=== PATIENT | female | born 1945 | race Caucasian/White ===

== ENCOUNTER 2023-10-31 07:48 | Day surgery (SDC) | payer MEDICARE, MEDICAID ==
[~2023-10-31] VITALS: Ht 157.5 cm; Wt 61.4 kg
[2023-10-31] VITALS (22 sets, daily range): BP systolic 116–176; BP diastolic 53–90; PULSE 66–91; RESP 12–18; TEMP 97.1; O2SAT 92–100
[~2023-10-31 07:48] MED LIST: B12 VITAMIN; BECL7.3A INH; BIOTIN; EVOL140P3 SUBCUT; LIDOcaine 1% w/EPI 1:100,000 inj. MDV 50 ML VIAL ONE; MOME45CR3 TOP; PROBIOTIC; VITAMIN C; [UNRECOGNIZED DRUG - OTHER]; [UNRECOGNIZED DRUG - OTHER]; bacitracin 15gm ointment TP ONE; cocaine 4% topical solution 4ml bottle ONE; epiNEPHrine 1 mg/ml 30ml MDV ONE; mupirocin 2% ointment 22GM ONE; oxymetazoline 15 ML nasal spray NS ONE; tranexamic acid 100mg/ml inj. ONE
[2023-10-31] MEDS: ringers solution, lacted 1,000 ML IV SCH (08:28)
[2023-10-31] MEDS: famotidine 20mg tablet PO ONE (08:28)
[2023-10-31] MEDS: oxymetazoline 15 ML nasal spray NS ONE (09:15)
[2023-10-31] MEDS ORDERED: propofol inj 20 ML IV ONE (09:58)
[2023-10-31] MEDS ORDERED: LIDOcaine 1%/PF 5ML 10 MG/ML VIAL ONE (09:58)
[2023-10-31] MEDS ORDERED: ondansetron/PF 4mg/2ml inj ONE (09:59)
[2023-10-31] MEDS ORDERED: dexamethasone sod phosphate 4mg/ml inj. ONE (09:59)
[2023-10-31] MEDS: cocaine 4% topical solution 4ml bottle TP ONE (10:05)
[2023-10-31] MEDS ORDERED: ondansetron/PF 4mg/2ml inj IV PRN ×2 (10:55→11:30)
[2023-10-31] MEDS ORDERED: ringers solution, lacted 1,000 ML IV SCH ×2 (10:55→11:30)
[2023-10-31] MEDS ORDERED: hydrALAZINE 20mg/ml inj. IV PRN ×2 (10:55→11:30)
[2023-10-31] MEDS ORDERED: salt irrigation nasal spray 45 ML SPRAY NS PRN (11:20)
[2023-10-31] MEDS: acetaminophen 1,000mg/100ml IV 100 ML IV ONE (11:21)
[2023-10-31] MEDS ORDERED: labetalol 20mg/4ml (5mg/ml) syringe IV PRN (11:30)
[2023-10-31] MEDS ORDERED: fentaNYL/PF 50MCG/1 ML 2ML syringe IV PRN ×2 (11:30)
[2023-10-31] MEDS ORDERED: proCHLORperazine 10 MG/2 ml inj IV PRN (11:30)
[2023-10-31] MEDS ORDERED: acetaminophen 1,000mg/100ml IV 100 ML IV ONE (11:30)
[2023-10-31] MEDS: labetalol 20mg/4ml (5mg/ml) syringe IV PRN (11:39)
[2023-10-31] MEDS: oxyCODONE/APAP 5-325mg tablet PO ONE (12:15)
[2023-10-31] MEDS: salt irrigation nasal spray 45 ML SPRAY NS SCH (12:15)
[2023-10-31] MEDS: mupirocin 2% nasal ointment 1gm UD NS SCH (12:16)
[2023-10-31] MEDS ORDERED: mupirocin 2% nasal ointment 1gm UD NS SCH (20:00)
== END 2023-10-31 13:43 | disposition home or self-care (01) ==
LOC: PAS 07:48
PROVIDERS: ATTEND Otolaryngology
DX: J34.2 Deviated nasal septum (principal); J34.3 Hypertrophy of nasal turbinates; E78.5 Hyperlipidemia, unspecified; J45.909 Unspecified asthma, uncomplicated; F41.9 Anxiety disorder, unspecified; Z85.038 Personal history of other malignant neoplasm of large intestine; Z79.2 Long term (current) use of antibiotics; Z79.82 Long term (current) use of aspirin; Z79.899 Other long term (current) drug therapy; Z90.49 Acquired absence of other specified parts of digestive tract; Z90.710 Acquired absence of both cervix and uterus; Z96.652 Presence of left artificial knee joint; Z98.890 Other specified postprocedural states; Z88.5 Allergy status to narcotic agent; Z88.8 Allergy status to other drugs, medicaments and biological substances
CPT/HCPCS: 30140; 30520; 82948; 93005; A6402; J0131; J1100; J2405; J2704; J3490; J7030; J7120; Z7506; Z7512; A4618; A6449; A7000; J0171

== ENCOUNTER 2024-01-11 10:37 | Observation (INO) | payer MEDICARE, MEDICAID ==
[2024-01-02 14:58] LABS: BASOPHILS # (AUTO) 0.1 X10'3 (0-0.2); EOSINOPHILS # (AUTO) 0.1 X10'3 (0-0.9); EOSINOPHILS % (AUTO) 2.8 % (0-6); LYMPHOCYTES # (AUTO) 1.3 X10'3 (1.1-4.8); LYMPHOCYTES % (AUTO) 26.9 % (21-51); MEAN CORPUSCULAR HEMOGLOBIN 32.3 PG (27.0-31.0); MEAN CORPUSCULAR HGB CONC 33.4 g/dL (33.0-36.5); MEAN CORPUSCULAR VOLUME 96.7 FL (78-98); MONOCYTES # (AUTO) 0.5 X10'3 (0-0.9); MONOCYTES % (AUTO) 9.9 % (2-12); NEUTROPHILS % (AUTO) 59.4 % (42-75); PRE OP HEMATOCRIT 40.5 % (35.0-45.0); PRE OP HEMOGLOBIN 13.5 g/dL (12.0-16.0); PRE OP PLATELET COUNT 203 X10'3 (140-440); RED BLOOD COUNT 4.19 X10'6 (4.20-5.60)
[2024-01-02 15:07] LABS: BILIRUBIN,URINE NEGATIVE (Neg); CLARITY,URINE CLOUDY (Clear); COLOR,URINE YELLOW (Yellow); GLUCOSE, URINE NEGATIVE (Neg); KETONES,URINE NEGATIVE (Neg); LEUKOCYTE ESTERASE ,URINE NEGATIVE (Neg); NITRITES, URINE NEGATIVE (Neg); OCCULT BLOOD,URINE NEGATIVE (Neg); PH,URINE 5.5 (4.8-8.0); PROTEIN,URINE NEGATIVE (Neg); UROBILINOGEN,URINE 0.2 E.U/dL (0.2-1.0)
[2024-01-02 15:13] LABS: UA COLLECTION TYPE CLN CATCH MIDSTREAM
[2024-01-02 15:19] LABS: RBC,URINE 0-2 /HPF (0-2); SQUAMOUS EPITHELIAL CELL,UR MANY /LPF (FEW)
[2024-01-02 15:23] LABS: ALBUMIN 3.5 G/DL (3.4-5.0); ALBUMIN/GLOBULIN RATIO 0.8 (1.1-1.5); ALKALINE PHOSPHATASE 78 IU/L (46-116); BLOOD UREA NITROGEN 14 MG/DL (7-18); BUN/CREATININE RATIO 18.4 (10.0-20.0); CHLORIDE 108 MMOL/L (99-107); CREATININE 0.76 MG/DL (0.40-0.90); PRE OP ALT 23 U/L (30-65); PRE OP ANION GAP 5 (8-16); PRE OP AST 19 U/L (10-37); PRE OP BILIRUB, TOTAL 0.5 MG/DL (0.0-1.0); PRE OP GLUCOSE 128 MG/DL (70-104); PRE OP POTASSIUM 3.6 MMOL/L (3.4-5.1); PRE OP SODIUM 140 MMOL/L (135-145); TOTAL CARBON DIOXIDE 26.8 MMOL/L (24-32); TOTAL PROTEIN 7.8 G/DL (6.4-8.2); eGFR 74 ML/MIN
[2024-01-02 15:23] LABS: MUCUS STRANDS MODERATE /LPF (Neg)
[2024-01-02 15:24] LABS: HYALINE CASTS 0-3 /LPF (NEGATIVE)
[2024-01-02 15:26] LABS: BACTERIA,URINE 1+ /HPF (Neg)
[~2024-01-11] VITALS: Ht 157.5 cm; Wt 61.0 kg
[2024-01-11] VITALS (41 sets, daily range): BP systolic 88–134; BP diastolic 42–79; PULSE 59–85; RESP 12–23; TEMP 97–98.7; O2SAT 91–99
[2024-01-11] MEDS: cefazolin 2gm/D5W 100mL 100 ML IV ONE (05:30)
[~2024-01-11 10:37] MED LIST changes: +ALBU90AE2 INH; -B12 VITAMIN; +CYAN25003 SL; -LIDOcaine 1% w/EPI 1:100,000 inj. MDV 50 ML VIAL ONE; -MOME45CR3 TOP; -bacitracin 15gm ointment TP ONE; -cocaine 4% topical solution 4ml bottle ONE; -epiNEPHrine 1 mg/ml 30ml MDV ONE; -mupirocin 2% ointment 22GM ONE; -oxymetazoline 15 ML nasal spray NS ONE; -tranexamic acid 100mg/ml inj. ONE
[2024-01-11] MEDS ORDERED: HYDROmorphone/PF 0.2 MG/ML SYRINGE IV PRN ×2 (11:05)
[2024-01-11] MEDS ORDERED: hydrALAZINE 20mg/ml inj. IV PRN (11:05)
[2024-01-11] MEDS ORDERED: labetalol 20mg/4ml (5mg/ml) syringe IV PRN (11:05)
[2024-01-11] MEDS ORDERED: fentaNYL/PF 50MCG/1 ML 2ML syringe IV PRN ×2 (11:05)
[2024-01-11] MEDS ORDERED: ondansetron/PF 4mg/2ml inj IV PRN ×2 (11:05→13:45)
[2024-01-11] MEDS: famotidine 20mg tablet PO ONE (11:17)
[2024-01-11] MEDS: ringers solution, lacted 1,000 ML IV SCH ×2 (11:17→16:20)
[2024-01-11] MEDS ORDERED: sevoflurane 250ml liquid IH ONE (12:08)
[2024-01-11] MEDS ORDERED: ketorolac trometh. 30mg/ml inj. ONE (12:35)
[2024-01-11] MEDS ORDERED: dexamethasone sod phosphate 4mg/ml inj. ONE (12:35)
[2024-01-11] MEDS ORDERED: ondansetron/PF 4mg/2ml inj ONE (12:35)
[2024-01-11] MEDS ORDERED: propofol inj 20 ML IV ONE ×2 (12:35)
[2024-01-11] MEDS ORDERED: ROPIVAcaine 0.5% (5mg/ml) 30ml vial ONE (12:35)
[2024-01-11] MEDS ORDERED: midazolam 1 mg/ML 2ml injection ONE (12:37)
[2024-01-11] MEDS ORDERED: fentaNYL/PF 50MCG/1 ML 2ML syringe ONE (12:37)
[2024-01-11] MEDS: bacitracin 15gm ointment TP ONE (13:01)
[2024-01-11] MEDS ORDERED: metoclopramide 5 mg/ml inj IV PRN (13:45)
[2024-01-11] MEDS ORDERED: oxyCODONE/APAP 5-325mg tablet PO PRN (15:20)
[2024-01-11] MEDS ORDERED: ceFAZolin inj. 1,000 MG in dextrose 5%-water 50ml 50 ML IV SCH (16:00)
[2024-01-11] MEDS ORDERED: gentamicin in saline, iso-osm 80 MG/50 ML premix IV ONE (16:00)
[2024-01-11] MEDS: gentamicin inj 160 MG in normal saline 100ml IV soln 100 ML IV ONE (16:19)
[2024-01-11] MEDS: phenazopyridine 100mg tablet PO SCH (18:08)
[2024-01-11] MEDS: cefazolin 2gm/D5W 100mL 100 ML IV SCH (20:27)
[2024-01-12 02:00] VITALS: BP 97/47; PULSE 71; RESP 18; TEMP 97.4; O2SAT 95
[2024-01-12 06:00] VITALS: BP 103/52; PULSE 72; RESP 18; TEMP 98.6; O2SAT 94
[2024-01-12 08:00] VITALS: RESP 18; O2SAT 94
[2024-01-12 10:00] VITALS: BP 105/50; PULSE 79; RESP 16; TEMP 97.3; O2SAT 97
== END 2024-01-12 14:05 | disposition home or self-care (01) ==
LOC: PAS 10:37 → PAS IN 13:47 → ORTHO 4S 17:30
PROVIDERS: ADMIT Podiatrist Foot & Ankle Surgery; ATTEND Podiatrist Foot & Ankle Surgery
DX: M20.21 Hallux rigidus, right foot (principal); M19.071 Primary osteoarthritis, right ankle and foot; F41.9 Anxiety disorder, unspecified; I25.10 Atherosclerotic heart disease of native coronary artery without angina pectoris; Z85.038 Personal history of other malignant neoplasm of large intestine; Z79.899 Other long term (current) drug therapy
CPT/HCPCS: 28750; 73620; 80053; 81001; 82948; 87077; 87186; 96365; 96366; A4215; A4618; A7000; C1713; G0378; J0690; J7120; L4360; 36415; 76000; 85025; 87088; A6223; A6449; J1100; J1580; J1885; J2250; J2405; J2704; J2795; J3010